=== PATIENT | female | born 1990 | race Caucasian/White ===

== ENCOUNTER 2018-09-25 17:39 | Inpatient (IN) | payer MEDICAID ==
[2018-09-25] MEDS ORDERED: CARBOPROST 250 MCG INJ IM (18:30)
[2018-09-25] MEDS ORDERED: LIDOCAINE 1% (MPF) 30 ML INJ INJ (18:30)
[2018-09-25] MEDS ORDERED: IBUPROFEN 600 MG TAB PO (18:30)
[2018-09-25] MEDS ORDERED: OXYTOCIN 30 UNITS/LR 500 ML IV (18:30)
[2018-09-25] MEDS ORDERED: BUTORPHANOL 2 MG INJ IV (18:30)
[2018-09-25] MEDS ORDERED: AMPICILLIN 2 GM/NS (PMX) 100 ML IV (18:30)
[2018-09-25] MEDS ORDERED: MISOPROSTOL 200 MCG TAB PR (18:30)
[2018-09-25] MEDS ORDERED: METHYLERGONOVINE 0.2 MG INJ IM (18:30)
[2018-09-25] MEDS: LACTATED RINGER'S 1,000 ML IV (18:55)
[2018-09-25 19:07] LABS: ADD MAN DIFF? NO
[2018-09-25 19:14] LABS: WHITE BLOOD COUNT 11.7 10^3/ul (4.8-10.8)
[2018-09-25 19:14] LABS: BASOPHILS % 0.3 % (0.0-2.0); EOSINOPHILS # 0.2 10^3/ul (0.0-0.5); EOSINOPHILS % 1.6 % (0.0-7.0); HEMATOCRIT 34.8 % (37.0-47.0); HEMOGLOBIN 12.1 g/dl (12.0-16.0); LYMPHOCYTES % 17.1 % (15.0-51.0); MEAN CORPUSCULAR HEMOGLOBIN 30.6 pg (29.0-33.0); MEAN CORPUSCULAR HGB CONC 34.8 g/dl (32.0-37.0); MEAN CORPUSCULAR VOLUME 87.9 fl (82.0-101.0); MEAN PLATELET VOLUME 10.6 fl (7.4-10.4); MONOCYTE # 0.7 10^3/ul (0.3-0.9); NEUTROPHIL # 8.7 10^3/ul (1.6-7.5); NEUTROPHILS % 74.4 % (39.0-77.0); PLATELET COUNT 215 10^3/UL (140-415); RED BLOOD COUNT 3.96 10^6/ul (4.20-5.40)
[2018-09-25 19:33] LABS: INR 0.87; PROTIME 11.9 Sec (11.9-14.9); PT RATIO 0.9
[2018-09-25 19:34] LABS: PARTIAL THROMBOPLASTIN TIME 24.5 Sec (23.0-35.0)
[2018-09-25 20:17] LABS: HEPATITIS B SURFACE ANTIGEN NEGATIVE (NEGATIVE)
[2018-09-25] MEDS ORDERED: AMPICILLIN 1 GM/NS (PMX) 50 ML IV (22:30)
[2018-09-25] MEDS: OXYTOCIN 30 UNITS/LR 500 ML IV ×4 (22:55→23:36)
[2018-09-26] MEDS ORDERED: METHYLERGONOVINE 0.2 MG TAB PO
[2018-09-26] MEDS ORDERED: METHYLERGONOVINE 0.2 MG INJ IM
[2018-09-26] MEDS ORDERED: ONDANSETRON 4 MG INJ IV
[2018-09-26] MEDS ORDERED: HYDROCODONE/APAP (5/325) TAB PO
[2018-09-26] MEDS ORDERED: NACL 0.9% 3 ML SYG IV
[2018-09-26] MEDS ORDERED: MISOPROSTOL 200 MCG TAB PR
[2018-09-26] MEDS ORDERED: OXYTOCIN 30 UNITS/LR 500 ML IV
[2018-09-26] MEDS ORDERED: ZOLPIDEM 5 MG TAB PO
[2018-09-26] MEDS ORDERED: CARBOPROST 250 MCG INJ IM
[2018-09-26] MEDS ORDERED: ACETAMINOPHEN 325 MG TAB PO
[2018-09-26] MEDS ORDERED: DIPHENHYDRAMINE 25 MG CAP PO
[2018-09-26] MEDS: IBUPROFEN 600 MG TAB PO ×5 (05:25→23:42)
[2018-09-26 08:45] LABS: ADD MAN DIFF? NO
[2018-09-26 08:52] LABS: WHITE BLOOD COUNT 15.3 10^3/ul (4.8-10.8)
[2018-09-26 08:52] LABS: BASOPHILS % 0.2 % (0.0-2.0); EOSINOPHILS # 0.1 10^3/ul (0.0-0.5); EOSINOPHILS % 0.7 % (0.0-7.0); HEMATOCRIT 33.1 % (37.0-47.0); HEMOGLOBIN 11.3 g/dl (12.0-16.0); LYMPHOCYTES # 1.8 10^3/ul (0.8-2.9); LYMPHOCYTES % 11.6 % (15.0-51.0); MEAN CORPUSCULAR HEMOGLOBIN 30.5 pg (29.0-33.0); MEAN CORPUSCULAR HGB CONC 34.1 g/dl (32.0-37.0); MEAN CORPUSCULAR VOLUME 89.2 fl (82.0-101.0); MEAN PLATELET VOLUME 10.7 fl (7.4-10.4); MONOCYTES % 6.6 % (0.0-11.0); NEUTROPHIL # 12.3 10^3/ul (1.6-7.5); NEUTROPHILS % 80.2 % (39.0-77.0); PLATELET COUNT 185 10^3/UL (140-415); RED BLOOD COUNT 3.71 10^6/ul (4.20-5.40); RED CELL DISTRIBUTION WIDTH 13.1 % (11.5-14.5)
[2018-09-26] MEDS: SENNA/DOCUSATE NA (8.6MG/50MG) TAB PO ×3 (08:52→23:42)
[2018-09-26 20:19] LABS: RAPID PLASMA REAGIN NONREACTIVE (NR)
[2018-09-27] MEDS: IBUPROFEN 600 MG TAB PO ×3 (05:50→18:34)
[2018-09-27] MEDS: SENNA/DOCUSATE NA (8.6MG/50MG) TAB PO (08:43)
[2018-09-27] MEDS: MEASLES,MUMPS,RUBELLA VACCINE INJ SC* (09:00)
[2018-09-27] MEDS: VARICELLA VACCINE LIVE/PF 1,350 UNIT/0.5 ML ML SC* (09:00)
[2018-09-27] MEDS: LANOLIN HPA 1 PKT TOP (11:55)
[2018-09-27] MEDS: DIPHTH/TET/ACEL PERTUSS (ADULT) 0.5 ML VIAL IM* (11:57)
[2018-09-27 13:41] LABS: RUBELLA ANTIBODY - IGM <20.00 AU/mL
[2018-09-27 14:26] LABS: RUBELLA ANTIBODY - IGG 5.63 index
== END 2018-09-27 19:02 | disposition home or self-care (01) | DRG 807 ==
LOC: OBT 17:39 → PP1 09-26 01:14 → L-D 17:40 → OBT 18:15 → L-D 18:15
PROVIDERS: Obstetrics & Gynecology
PROC: 10E0XZZ Delivery of Products of Conception, External Approach (ICD-10-PCS; principal; 2018-09-25)
PROC: 0W8NXZZ Division of Female Perineum, External Approach (ICD-10-PCS; 2018-09-25)
PROC: 3E033VJ Introduction of Other Hormone into Peripheral Vein, Percutaneous Approach (ICD-10-PCS; 2018-09-25)
DX: O70.0 First degree perineal laceration during delivery (principal); O69.81X0 Labor and delivery complicated by cord around neck, without compression, not applicable or unspecified; Z3A.37 37 weeks gestation of pregnancy; Z37.0 Single live birth
CPT/HCPCS: 85025; 85610; 85730; 86592; 86762; 86850; 86900; 86901; 87340; 90715; 90716